=== PATIENT | female | born 1975 | race Caucasian/White ===

== ENCOUNTER 2016-11-05 06:40 | Emergency (ER) | payer BC ==
[~2016-11-05] VITALS: Ht 157.5 cm; Wt 108.9 kg
--- NOTE | 2016-11-05 07:04 | Emergency Room Report ---
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 N Clinical Suspician of Infection? Y Mental Status: 1 - Regular (Normal Baseline) Sepsis Risk:Low Sepsis Risk Have you (or family members/close friends) recently traveled outside the [place]? N If Yes, where/when: Have you had exposure to infectious disease within the past month? N TB? Other? Specify: Source patient, RN notes reviewed, family, old records Exam Limitations no limitations Comment acute onset of rt flank pain this am assoc with nausea Cardiac Chest Pain Chest pain indicative of cardiac No Timing/Duration this morning Severity moderate ALLERGIES Coded Allergies: morphine (Intermediate, HALLUCTION 03/01/16) Home Medications Active Scripts Cyclobenzaprine Hcl (Flexeril) 10 MG PO TID #21 TAB Prov: 12/24/15 SULFAMETHOXAZOLE W/TRIMETHOPRI (Bactrim Ds Tab) 1 TABLET PO BID #20 TAB Prov: 03/03/16 Reported Medications HYDROCHLOROTHIAZIDE (Hydrochlorothiazide) 25 MG PO DAILY #30 Diclofenac Sodium 75 MG PO DAILY #30 VENLAFAXINE HCL (Venlafaxine HCl ER) 37.5 MG PO DAILY #30 No Home Medications (NO HOME MEDICATIONS) 1 EACH XX ONCE (Ping PATEL,Tono Younger) History Medical History General CAD? No Angina: No [place]: No Hypertension? No Hyperlipidemia? No CHF? No DVT? No PE? No COPD? No Asthma? No Anemia? No GERD? No Gastric ulcers? No GI Bleed? No Hernia? No Thyroid Problems? No Hypothyroidism? No CVA? No Seizures? No Diabetes? No Renal Insuffiency? No End Stage Renal Disease? No UTI? No Stones? Yes BPH? No GB Disease: No Nephritic Syndrome? No Asplenia? No Hepatitis? No Sickle Cell Disease? No Arthritis? Yes Migraines? No Cataracts? No Glaucoma? No MRSA? No HIV? No TB? No Anxiety? No Depression? Yes Cancer? No More? 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 Respiratory denies cough, denies shortness of breath, denies wheezing Cardiovascular denies chest pain, denies palpitations, denies syncope Gastrointestinal see HPI, abdominal pain, nausea, vomiting, denies other Genitourinary denies: dysuria, frequency, hesitancy, hematuria. Musculoskeletal denies back pain, denies joint pain, denies joint swelling, denies neck pain Skin denies rash Psychiatric/Neurological denies headache, denies seizure (Tono Feng MD) Physical Exam Vital Signs Vital Signs Date Time Temp Pulse Resp B/P Pulse O2 O2 Flow FiO2 Ox Delivery Rate 11/05 0946 70 16 119/85 97 11/05 0924 16 11/05 0913 58 18 140/80 97 11/05 0744 74 18 121/73 97 11/05 0713 14 11/05 0709 14 11/05 0645 97.9 72 14 153/93 97 - WBC >12,000 or <4,000 or 10% bands? 2 or more SIRS Criteria Met? B/P:153/93 MAP:113 Creatinine >2.0? UA output<0.5ml/kg/hr for 2 hrs? Platelet count >100,000? Lactate >2.0mmol/1? INR >1.2 or PTT > than 60 sec? Evidence of Organ Dysfunction? Provider documented clinical suspician of infection? Y Sepsis Criteria Count: 1 Sepsis Risk: Low Sepsis Risk General Appearance no apparent distress Eye Exam - bilateral eye PERRL, bilateral eye EOMI Ear, Nose, Throat normal ENT inspection Neck supple Respiratory Status No: respiratory distress. Lung Sounds bilateral: lungs clear. Cardiovascular regular rate/rhythm, no murmur Peripheral Pulses Pulses normal Yes Gastrointestinal soft, no organomegaly, no pulsatile mass, no guarding, no rebound, tenderness Back no CVA tenderness Extremities normal inspection Strength 4 Upper Ext (L), 4 Upper Ext (R), 4 Lower Ext (L), 4 Lower Ext (R) Neurologic alert, venipuncturist II-XII nml as tested, no motor/sensory deficits Reflexes Reflexes normal No Mental status normal mood/affect Skin no rash cons.w/shingles (Ping PATEL,Tono Younger) Medical Decision Making LABS/Meds/Orders Pt receiving controlled substance in ED? No Results/Orders Laboratory Tests 11/05/16 0835: Urine Color YELLOW, Urine Appearance CLOUDY, Urine pH 5.0, Ur Specific [place] > = 1.030, Urine Protein TRACE H, Urine Ketones NEGATIVE, Urine Blood 3+ H, Urine Nitrate NEGATIVE, Urine Bilirubin NEGATIVE, Urine Urobilinogen 0.2, Ur Leukocyte Esterase TRACE H, Urine RBC OCC, Urine WBC OCC, Urine Bacteria 4+, Urine Glucose TRACE H 11/05/16 0705: Sodium 138, Potassium 3.9, Chloride 104, Carbon Dioxide 23, BUN 9, Creatinine 1.0, Estimated Creat Clear 125, Estimated GFR (MDRD) 61, Glucose 189 H, Calcium 8.8, Total Bilirubin 0.5, AST 14 L, ALT 28, Alkaline Phosphatase 76, Total Protein 7.7, Albumin 3.9, Globulin 3.8 H, Albumin/Globulin Ratio 1.0 L, Amylase 27, Lipase 171, WBC 9.6, RBC 5.01, Hgb 14.8, Hct 41.7, MCV 83.2, RDW 13.9, Plt Count 324, MPV 7.7, Gran % 79.3, Gran # 7.6, Lymphocytes % 14.6, Monocytes % 3.2, Eosinophils % 2.3, Basophils % 0.6, Lymphocytes # 1.4, Monocytes # 0.3, Eosinophils # 0.2, Basophils # 0.1, PUBS MCHC 35.6 H, MCH 29.6 Current Medication Orders Sig/Samreen Start time Last Medication Dose Route Stop Time Status Admin Ceftriaxone Sodium 0 .STK-MED ONE 11/05 940 DC IV Sodium Chloride 50 ML .STK-MED ONE 11/05 940 DC IV Ceftriaxone Sodium 1 GM ONCE ONE 11/05 929 DC 11/05 Sodium Chloride 50 ML IV 11/05 Ondansetron HCl 0 .STK-MED ONE 11/05 917 DC .ROUTE Hydromorphone HCl 0 .STK-MED ONE 11/05 916 DCr .ROUTE Hydromorphone HCl 1 MG ONCE ONE 11/05 0815 DCr 11/05 IV 11/05 0916 0924 Ondansetron HCl 4 MG ONCE ONE 11/05 914 DC 11/05 IV 11/05 0916 0923 Hydromorphone HCl 1 MG ONCE ONE 11/05 0715 DCr 11/05 IV 11/05 0716 0713 Ketorolac 30 MG ONCE ONE 11/05 0715 DC 11/05 Tromethamine IV 11/05 0716 0709 Hydromorphone HCl 0 .STK-MED ONE 11/05 0710 DCr .ROUTE Ketorolac 0 .STK-MED ONE 11/05 0707 DC Tromethamine .ROUTE Ondansetron HCl 0 .STK-MED ONE 11/05 07 DC .ROUTE Sodium Chloride 1,000 ML .STK-MED ONE 11/05 07 DC IV Ondansetron HCl 4 MG ONCE ONE 11/05 07 DC 11/05 IV 11/05 0701 0706 Sodium Chloride 1,000 ML .Q1H1M 11/05 07 DC 11/05 IV 11/05 0800 0706 Sodium Chloride 10 ML PRN PRN 11/05 07 AC IV 11/06 0700 Orders Procedure Date/time Status DIET-NOTHING BY MOUTH 11/05 B Active CULTURE, URINE 11/[address] ABD/PELVIS REQ 11/05 0659 Complete IV SALINE LOCK 11/05 0659 Active URINALYSIS/COMPLETE 11/05 0659 Complete LIPASE 11/05 0659 Complete CBC WITH AUTO DIFF 11/05 0659 Complete CHEM 12 PROFILE 11/05 0659 Complete AMYLASE 11/05 0659 Complete XRAY/CT/US XRAY/CT/US CT abdomen, pelvis CT interpretation by discussed w/radiologist Time results known: 0814 CT Results abnormal (see report) (Ping PATEL,Tono Younger) LABS/Meds/Orders Pt receiving controlled substance in ED? Yes [place] was queried for this patient? Yes Reference #: [id number] Risks/benefits of using a controlled substance for treatment were not discussed w/pt XRAY/CT/US XRAY/CT/US CT abdomen, pelvis CT interpretation by discussed w/radiologist Time results known: 0957 CT Results 4 cm cyst on right ovary, Mild Right Hydronephrosis with 2 mm stone at right UVJ (Yaz Hurt MD) Departure Departure Time of Disposition 0814 ED Critical Care Critical Care No (Tono Feng MD) Departure Time of Disposition 0958 Disposition DC Home or Self Care(routine) Clinical Impression Primary Impression: Flank pain, acute Secondary Impressions: Ovarian cyst Qualifiers: Laterality: right Qualified Code: N83.201 - Unspecified ovarian cyst, right side Right ureteral stone Condition STABLE Referrals Chino Sotomayor MD (Family) Patient Instructions Acute Cystitis, DI for Acute Cystitis, DI for Kidney Stones , DI for Ovarian Cyst, Kidney Stones -- Adult, Ovarian Cyst Additional Instructions see pcp and mold maintenance technician for follow up to recheck urine and ovarian cysts and take meds as directed. Strain all urine and if stone is caught, take to PCP to get it sent for analysis Discharge Counseling Counseled pt/family regarding diagnosis, test results, medications/RX, home care, follow up needs Prescriptions Current Visit Scripts OXYCODONE HCL/ACETAMINOPHEN (Percocet 5-325 MG Tablet) 1 TAB PO Q4H P #20 TAB Ciprofloxacin HCl (Cipro 500MG TAB) 500 MG PO BID #14 TAB Phenazopyridine HCl (Pyridium) 100 MG PO TID #21 TAB ED Critical Care Critical Care No If Critical Care minutes are documented, the time involved in the performance of seperately reportable procedures was not counted toward critical care time documented. I directly delivered medical care to this critically ill and/or injured patient. Timely evaluation and treatment was necessary to address the significant organ system(s) dysfunction present in this patient. (Yaz Hurt MD) at 0816 at 1004
[2016-11-05 07:14] LABS: HEMOGLOBIN 14.8 g/dL (12.2-16.2); LYMPH # 1.4 K/mm3 (0.7-4.5); LYMPH % 14.6 % (10-50.0)
[2016-11-05 08:42] LABS: URINE BLOOD 3+ (NEG)
[2016-11-05 08:48] LABS: URINE BILIRUBIN - DIPSTICK NEGATIVE (NEG)
--- NOTE | 2016-11-05 09:30 | RADIOLOGY REPORT PS360 ---
US PELVIS-TRANSVAGINAL ONLY HISTORY: Right-sided pelvic pain, abnormal CT scan rt pelvic pain ORDERING PHYSICIAN: Yaz Hurt MD PATIENT AGE: 41 years COMPARISON: None FINDINGS: The uterus is 9 x 5 x 6 cm with a combined endometrial thickness of 9 mm. Nabothian cysts are present. Small amount fluid is present within the endometrium. The uterus is otherwise unremarkable. Right ovary is 5 x 5 cm containing a 4 x 3 cm cyst. No internal septations of the cyst. No perceptible wall. Left ovary is 4 x 3 cm and contains a 2 cm cyst. Ovarian blood flow is noted bilaterally. No cul-de-sac fluid evident. IMPRESSION: 1. 4 cm benign-appearing right ovarian cyst and 2 cm benign-appearing left ovarian cyst. Consider follow-up to confirm resolution. 2. Endometrium upper limits of normal with minimal amount of fluid within the endometrium
--- NOTE | 2016-11-05 09:42 | RADIOLOGY REPORT PS360 ---
CT ABD PELVIS W/O CONTRAST CLINICAL INDICATION: Right-sided abdominal pain radiating into the lower abdomen ABDOMEN PAIN ORDERING PHYSICIAN: Yaz Hurt MD PATIENT AGE: 41 years COMPARISON: 03/03/2016 TECHNIQUE: Axial images obtained with sagittal and coronal reformats. PROCEDURE: Oral Contrast: None IV Contrast: None . FINDINGS: No acute finding the lower chest. Prior cholecystectomy without biliary dilatation. The liver, spleen, adrenal glands, and pancreas are unremarkable. There is cortical scarring of the left kidney with an area of nephrocalcinosis involving the left kidney posteriorly with an associated 1.5 cm cyst. There is mild right hydronephrosis and hydroureter. There is a 2 mm calcific density in the right lower pelvic region which may be related to distal ureteral calculus. Artifact is present in this region from right hip replacement. No calculi are evident within the urinary bladder. No evidence of appendicitis. The appendix is retrocecal. No evidence of diverticulitis or intestinal obstruction. There is diverticulosis of the sigmoid colon. There is a 4 cm right adnexal cyst. Degenerative disc disease L5-S1. Small umbilical hernia containing fat. IMPRESSION: 1. 2 mm right ureterovesical junction stone with mild right hydroureteronephrosis. 2. 4 cm cystic lesion in the right adnexa consistent with an ovarian cyst. 3. Cortical scarring of the left kidney
[2016-11-05 10:48] VITALS: BP 124/82
== END 2016-11-05 11:08 | disposition home or self-care (01) ==
LOC: ER 06:40
PROVIDERS: Emergency Medicine
DX: N83.201 Unspecified ovarian cyst, right side (principal); N20.1 Calculus of ureter; F17.210 Nicotine dependence, cigarettes, uncomplicated

== ENCOUNTER 2016-11-20 17:19 | Emergency (ER) | payer OTHER ==
[~2016-11-20] VITALS: Ht 157.5 cm; Wt 108.9 kg
--- NOTE | 2016-11-20 17:53 | Emergency Room Report ---
History of Present Illness Time Seen by [id number] Presenting Problem in Triage Pt arrived:Walked Presenting Problem:PT C/O PRESSURE IN HER HEAD THAT HAS BEEN ONGOING FOR 2 WEEKS. 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 N Clinical Suspician of Infection? N Mental Status: 1 - Regular (Normal Baseline) Sepsis Risk:Low Sepsis Risk Have you (or family members/close friends) recently traveled outside the [place]? N If Yes, where/when: Have you had exposure to infectious disease within the past month? N TB? Other? Specify: Patient complains of right-sided headache throbbing moderate to severe at times she states currently to 10 out of 10-2 weeks ago and is Progressively worse she states the light hurts her eyes she has been seen by her primary doctor couple times for it. Was placed on some antibiotics for possible sinusitis. He denies any fevers or chills C states she has a little bit of pain at the base of her head but just on the RIGHT side of her neck she denies any generalized neck stiffness. Her headache is on the RIGHT side of the head throbbing with photophobia and she states sometimes she has blurry vision in her right eye only that is like looking through irregular type glass. ALLERGIES Coded Allergies: morphine (Intermediate, HALLUCTION 03/01/16) Home Medications Reported Medications HYDROCHLOROTHIAZIDE (Hydrochlorothiazide) 25 MG PO DAILY #30 VENLAFAXINE HCL (Venlafaxine HCl ER) 37.5 MG PO DAILY #30 No Home Medications (NO HOME MEDICATIONS) 1 EACH XX ONCE History Medical History General CAD? No Angina: No [place]: No Hypertension? No Hyperlipidemia? No CHF? No DVT? No PE? No COPD? No Asthma? No Anemia? No GERD? No Gastric ulcers? No GI Bleed? No Hernia? No Thyroid Problems? No Hypothyroidism? No CVA? No Seizures? No Diabetes? No Renal Insuffiency? No End Stage Renal Disease? No UTI? No Stones? Yes BPH? No GB Disease: No Nephritic Syndrome? No Asplenia? No Hepatitis? No Sickle Cell Disease? No Arthritis? Yes Migraines? No Cataracts? No Glaucoma? No MRSA? No HIV? No TB? No Anxiety? No Depression? Yes Cancer? No More? 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 Eyes: conjunctiva/corneas clear ENT: Mucous membranes moist. Neck: No jugular venous distention. Cardiac: regular rate and rhythm Lungs: Clear to auscultation bilaterally Abdomen: Nontender, Nondistended, positive bowel sounds, no rebound : No CVA tenderness Extremities: no edema Musculoskeletal: No chest wall tenderness Skin: No rashes or lesions to exposed skin. Neurologic: Alert. Alert and oriented x3 Cranial nerves intact Strength 5 out of 5 Sensation intact to light touch Visual rod intact 4 Right eye Psychiatric: Normal affect (Lisa PATEL, Darrell) General Appearance normal appearance Respiratory Status No: respiratory distress. Cardiovascular normal exam Neurologic alert Medical Decision Making LABS/Meds/Orders Pt receiving controlled substance in ED? No Comment 637pm just got off the phone with radiology either states there is a high density RIGHT posterior fossa area next the transverse venous sinus that was not there previously he thinks that is likely not a bleed but cannot exclude a bleed. The nurse tells me the current blood pressure is 157/96. We have a call out to [facility] she is on the phone with them right now radiology called back, states perhaps venous thrombosis versus bleed, versus 645 on phone with transfer center. awaiting NS/stroke team [phone] Wilfred PATEL accepts patient, desires bp 160-140 range. its now 177 will give labetolol, further pain medicine. Results/Orders Laboratory Tests 11/20/16 1750: Sodium 140, Potassium 3.9, Chloride 104, Carbon Dioxide 29, BUN 12, Creatinine 1.0, Estimated Creat Clear 125, Estimated GFR (MDRD) 61, Glucose 124 H, Calcium 8.6, Total Bilirubin 0.2, AST 17, ALT 39, Alkaline Phosphatase 75, Total Protein 7.2, Albumin 3.5, Globulin 3.7 H, Albumin/Globulin Ratio 0.9 L, WBC 10.9 H, RBC 4.94, Hgb 14.8, Hct 43.8, MCV 88.6, RDW 14.0, Plt Count 301, MPV 7.6, Gran % 70.7, Gran # 7.7, Lymphocytes % 23.2, Monocytes % 4.3, Eosinophils % 1.6, Basophils % 0.3, Lymphocytes # 2.5, Monocytes # 0.5, Eosinophils # 0.2, Basophils # 0.0, PUBS MCHC 33.8, MCH 30.0 Current Medication Orders Sig/Samreen Start time Last Medication Dose Route Stop Time Status Admin Hydromorphone HCl 0.5 MG ONCE ONE 11/20 1900 r IV 11/20 190 Labetalol HCl 0 .STK-MED ONE 11/20 1852 DC IV Labetalol HCl 10 MG ONCE ONE 11/20 1815 DC IV 11/20 1816 Diphenhydramine HCl 25 MG ONCE ONE 11/20 1800 DC 11/20 IV 11/20 1801 1801 Metoclopramide HCl 10 MG ONCE ONE 11/20 1800 DC 11/20 IVP 11/20 1801 1802 Sodium Chloride 1,000 ML .Q1H1M 11/20 1800 AC 11/20 IV 11/20 1900 1800 Sodium Chloride 10 ML PRN PRN 11/20 1800 AC IV 11/21 1749 Diphenhydramine HCl 0 .STK-MED ONE 11/20 175 DC .ROUTE Sodium Chloride 1,000 ML .STK-MED ONE 11/20 175 DC IV Metoclopramide HCl 0 .STK-MED ONE 11/20 175 DC .ROUTE Sodium Chloride 10 ML PRN PRN 11/20 1730 AC IV 11/21 172 Orders Procedure Date/time Status DIET-NOTHING BY MOUTH 11/[address] HEAD REQ 11/20 1729 Complete IV SALINE LOCK 11/20 1729 Active CBC WITH AUTO DIFF 11/20 1729 Complete CHEM 12 PROFILE 10/[address] HEAD W/O CONTRAST 11/20 UNK Active Departure Departure Time of Disposition 1838 Disposition DC/XFER from ER to [facility] Clinical Impression Primary Impression: Headache Qualifiers: Headache type: unspecified Condition STABLE Referrals Chino Sotomayor MD (Family) ED Critical Care Critical Care Yes Time spent 30-74 min Vital system(s) involved: Central Nervous System I was present at bedside for Coordinating pt's care, Interpreting EKGs/Strips , During my initial exam, Reviewing lab results, Discussing pt condition, For re -examinations If Critical Care minutes are documented, the time involved in the performance of seperately reportable procedures was not counted toward critical care time documented. I directly delivered medical care to this critically ill and/or injured patient. Timely evaluation and treatment was necessary to address the significant organ system(s) dysfunction present in this patient. at 1856
[2016-11-20 17:56] LABS: HEMOGLOBIN 14.8 g/dL (12.2-16.2); LYMPH # 2.5 K/mm3 (0.7-4.5); LYMPH % 23.2 % (10-50.0)
--- NOTE | 2016-11-20 19:10 | RADIOLOGY REPORT PS360 ---
CT HEAD WITHOUT CONTRAST CT BONE WINDOWS included ORDERING PHYSICIAN : Darrell Gonzalez MD PATIENT AGE: 41 years GENDER: Female PROCEDURE: Routine axial images headwithout contrast. Brain & bone windows HISTORY: LATERAL RT HEADACHE X 2 WEEKS PRESSURE Right-sided pain and pressure2 weeks COMPARISON: Previous CT head 07/26/2011 FINDINGS: Inhomogeneous hyperdense material is seen overlying the tentorium on right along the course of the prominent distended right transverse dural venous sinus. This is unchanged as prior CT study. This appearance most likely does reflect reflecting transverse sinus dural venous thrombosis with inhomogeneous hyperdense blood evident here along course of right transverse sinus. Question, suspect possible extension into the straight sinus and possible associated developing superior sagittal sinus thrombosis noting slightly generous hyperdense appearance in these regions as well well on this noncontrast study. This is not helical study but attempted 3-D reconstructions support transverse sinus thrombosis. Rather than other form of hemorrhage overlying posterior fossa such as subdural collection . A CT or MRI venogram would be recommended to further evaluate and confirm . The lateral and third ventricles appear normal in size. Remainder supratentorial brain unremarkable. Fourth ventricle remains normal position and size. Interpeduncular cistern appears clear and normal does suprasellar cistern. ... The skull is intact. Orbits unremarkable The visualized portions of the paranasal sinuses are clear. Mastoid air cells, middle ear & IACs are unremarkable. IMPRESSION: Inhomogeneous hyperdense material along the course of the distended right transverse dural venous sinus.. 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 This is significant change since previous noncontrast CT head 2011 . MRV or CTV brain recommended
[2016-11-20 19:38] VITALS: BP 160/99
--- OUTSIDE RECORDS SUMMARY | 2016-11-28 16:06 | External Medical Summary Rpt | CCD ---
Author Author [employer] Organization [employer] Address Unknown Phone Unavailable Purpose Continuity of Care Document - through 2016
--- OUTSIDE RECORDS SUMMARY | 2016-11-28 16:06 | External Medical Summary Rpt | CCD ---
Author Author , AV JOSHI Address Unknown Phone [email or web address] Purpose Continuity of Care Document - 11-05-2016 through 2016 Results Labs Lab Lab Date Result Refere Interp Status Commen Order Detail nces retati t Range on UFH PPP In Service Education Teacher-aCnc (11-23-2016 03:09) UFH PPP 0.48 complet 017 IU/mL ed In Service Education Teacher-aC 03:09 nc Sodium SerPl-sCnc (11-22-2016 10:04) Sodium 139 136-145 complet SerPl-s 017 mmol/L ed Cnc 10:04 UFH PPP In Service Education Teacher-aCnc (11-22-2016 10:04) UFH PPP 0.66 complet 017 IU/mL ed In Service Education Teacher-aC 10:04 nc TSH SerPl DL<=0.005 mIU/L-aCnc (11-22-2016 04:11) TSH 0.61 0.4-4.2 complet SerPl 017 uIU/mL ed DL<=0.0 04:11 05 mIU/L-a Cnc Phosphate SerPl-mCnc (11-22-2016 04:11) Phospha 2.4 2.5-4.5 complet te 017 mg/dL ed SerPl-m 04:11 Cnc Magnesium SerPl-mCnc (11-22-2016 04:11) Magnesi 1.9 1.9-2.4 complet um 017 mg/dL ed SerPl-m 04:11 Cnc UFH PPP In Service Education Teacher-aCnc (11-22-2016 04:11) UFH PPP 0.39 complet 017 IU/mL ed In Service Education Teacher-aC 04:11 nc UFH PPP In Service Education Teacher-aCnc (11-21-2016 22:35) UFH PPP 0.80 complet 017 IU/mL ed In Service Education Teacher-aC 22:35 nc Sodium SerPl-sCnc (11-21-2016 22:35) Sodium 139 136-145 complet SerPl-s 017 mmol/L ed Cnc 22:35 Sodium SerPl-sCnc (11-21-2016 16:08) Sodium 137 136-145 complet SerPl-s 017 mmol/L ed Cnc 16:08 UFH PPP In Service Education Teacher-aCnc (11-21-2016 16:08) UFH PPP 0.78 complet 017 IU/mL ed In Service Education Teacher-aC 16:08 nc MDRO Wnd (11-21-2016 11:30) Bacteri [id number] complet a XXX 017 00 not ed Anaerob 11:30 isolate e+Aerob d e Cult (qualif ier value) SCT NMDR NO MULTI DRUG RESISTA NT ORGANIS MS ISOLATE D L CC XXX NOTAP complet VC-aCnc 017 NOT ed 11:30 APPLICA BLE L UFH PPP In Service Education Teacher-aCnc (11-21-2016 09:53) UF PPP 0.77 complet 017 IU/mL ed In Service Education Teacher-aC 09:53 nc TSH SerPl DL<=0.005 mIU/L-aCnc (11-21-2016 09:39) TSH 0.99 0.4-4.2 complet SerPl 017 uIU/mL ed DL<=0.0 09:39 05 mIU/L-a Cnc Sodium SerPl-sCnc (11-21-2016 09:39) Sodium 138 136-145 complet SerPl-s 017 mmol/L ed Cnc 09:39 Ca-I SerPl ISE-sCnc (11-21-2016 05:52) Ca-I 4.3 4.6-5.1 complet SerPl 017 mg/dL ed ISE-sCn 05:52 c UUN Ur-mCnc (11-21-2016 05:52) UUN 724 complet Ur-mCnc 017 mg/dL ed 05:52 Sodium Ur-sCnc (11-21-2016 05:52) Sodium 115 complet Ur-sCnc 017 mmol/L ed 05:52 Potassium Ur-sCnc (10-05-2017 05:52) Potassi 34 complet um 017 mmol/L ed Ur-sCnc 05:52 Creat Ur-mCnc (11-21-2016 05:52) Creat 108 complet Ur-mCnc 017 mg/dL ed 05:52 Chloride Ur-sCnc (11-21-2016 05:52) Chlorid 98 complet e 017 mmol/L ed Ur-sCnc 05:52 Magnesium SerPl-mCnc (11-21-2016 04:42) Magnesi 2.0 1.9-2.4 complet um 017 mg/dL ed SerPl-m 04:42 Cnc Hgb A1c MFr Bld (11-21-2016 04:42) Hgb A1c DUP 4.7-6.0 complet MFr 017 DUPLICA ed Bld 04:42 TE ORDER,C REDITED L % Hgb A1c MFr Bld (11-21-2016 04:42) Hgb A1c 5.5 % 4.7-6.0 complet MFr 017 ed Bld 04:42 Phosphate SerPl-mCnc (11-21-2016 04:42) Phospha 2.3 2.5-4.5 complet te 017 mg/dL ed SerPl-m 04:42 Cnc CK SerPl-cCnc (11-21-2016 04:42) CK 34 U/L 37-168 complet SerPl-c 017 ed Cnc 04:42 UFH PPP In Service Education Teacher-aCnc (11-21-2016 04:42) UFH PPP LE11 complet 017 <0.11 L ed In Service Education Teacher-aC 04:42 IU/mL nc
--- OUTSIDE RECORDS SUMMARY | 2016-11-28 16:06 | External Medical Summary Rpt | CCD ---
Demographics Preferred Language Chinese Marital Status Unknown Advent Affiliation Unknown Race Unknown Ethnic Group Unknown Author Author , MADELYN JOSHI Address Unknown Phone Immunization No patient found.
--- OUTSIDE RECORDS SUMMARY | 2016-11-28 16:06 | External Medical Summary Rpt | CCD ---
Author Author , AV JOSHI Address Unknown Phone [email or web address] Purpose Continuity of Care Document - 11-05-2016 through 2016 Results Labs Lab Lab Date Result Refere Interp Status Commen Order Detail nces retati t Range on UFH PPP [facility]-a[facility] (11-23-2016 03:09) UFH PPP 0.48 complet 017 IU/mL ed [facility]-aC 03:09 nc Sodium SerPl-sCnc (11-22-2016 10:04) Sodium 139 136-145 complet SerPl-s 017 mmol/L ed Cnc 10:04 UFH PPP [facility]-a[facility] (11-22-2016 10:04) UFH PPP 0.66 complet 017 IU/mL ed [facility]-aC 10:04 nc TSH SerPl DL<=0.005 mIU/L-aCnc (11-22-2016 04:11) TSH 0.61 0.4-4.2 complet SerPl 017 uIU/mL ed DL<=0.0 04:11 05 mIU/L-a Cnc Phosphate SerPl-mCnc (11-22-2016 04:11) Phospha 2.4 2.5-4.5 complet te 017 mg/dL ed SerPl-m 04:11 Cnc Magnesium SerPl-mCnc (11-22-2016 04:11) Magnesi 1.9 1.9-2.4 complet um 017 mg/dL ed SerPl-m 04:11 Cnc UFH PPP [facility]-aCnc (11-22-2016 04:11) UFH PPP 0.39 complet 017 IU/mL ed [facility]-aC 04:11 nc UFH PPP [facility]-aCnc (11-21-2016 22:35) UFH PPP 0.80 complet 017 IU/mL ed [facility]-aC 22:35 nc Sodium SerPl-sCnc (11-21-2016 22:35) Sodium 139 136-145 complet SerPl-s 017 mmol/L ed Cnc 22:35 Sodium SerPl-sCnc (11-21-2016 16:08) Sodium 137 136-145 complet SerPl-s 017 mmol/L ed Cnc 16:08 UFH PPP [facility]-aCnc (11-21-2016 16:08) UFH PPP 0.78 complet 017 IU/mL ed [facility]-aC 16:08 nc MDRO Wnd (11-21-2016 11:30) Bacteri [id number] complet a XXX 017 00 not ed Anaerob 11:30 isolate e+Aerob d e Cult (qualif ier value) SCT NMDR NO MULTI DRUG RESISTA NT ORGANIS MS ISOLATE D L CC XXX NOTAP complet VC-aCnc 017 NOT ed 11:30 APPLICA BLE L UFH PPP [facility]-a[facility] (11-21-2016 09:53) UF PPP 0.77 complet 017 IU/mL ed [facility]-aC 09:53 nc TSH SerPl DL<=0.005 mIU/L-aCnc (11-21-2016 [...] SerPl-c 017 ed Cnc 04:42 UFH PPP [facility]-aCnc (11-21-2016 04:42) UFH PPP LE11 complet 017 <0.11 L ed [facility]-aC 04:42 IU/mL nc
--- OUTSIDE RECORDS SUMMARY | 2016-11-28 16:06 | External Medical Summary Rpt | CCD ---
Demographics Preferred Language German Marital Status Unknown Zoroastrianism Affiliation Unknown Race Unknown Ethnic Group Unknown Author Author , MADELYN JOSHI Address Unknown Phone Immunization No patient found.
--- OUTSIDE RECORDS SUMMARY | 2016-11-28 16:07 | External Medical Summary Rpt ---
Author Author MADELYN Sebastian, [employer] Organization [employer] Address Unknown Phone Unavailable Results Comprehensive metabolic 2000 panel in Serum or Plasma Observa Value Referen Units Interpr Notes Date tion ce etation Range Albumin/G 1.1 - 1.8 No Low No Oct 4 lobulin informati informati 2017 5:50 [Mass on in on in PM ratio] in source source Serum or data data Plasma Albumin 3.4 - 5.0 gm/dL Normal No Oct 4 [Mass/vol informati 2017 5:50 ume] in on in PM Serum or source Plasma data Alkaline 46 - 116 U/L Normal No Oct 4 phosphata informati 2017 5:50 se on in PM [Enzymati source c data activity/ volume] in Serum or Plasma Bilirubin 0.2 - 1.0 mg/dL Normal No Oct 4 .total informati 2017 5:50 [Mass/vol on in PM ume] in source Serum or data Plasma Urea 7 - 18 mg/dL Normal No Oct 4 nitrogen informati 2017 5:50 [Mass/vol on in PM ume] in source Serum or data Plasma Calcium 8.5 - mg/dL Normal No Oct 4 [Mass/vol 10.1 informati 2017 5:50 ume] in on in PM Serum or source Plasma data Chloride 98 - 107 mmoL/L Normal No Oct 4 [Moles/vo informati 2017 5:50 lume] in on in PM Serum or source Plasma data Carbon 21.0 - mmoL/L Normal No Oct 4 dioxide, 32.0 informati 2017 5:50 total on in PM [Moles/vo source lume] in data Serum or Plasma Creatinin 0.55 - mg/dL Normal No Oct 4 e 1.02 informati 2017 5:50 [Mass/vol on in PM ume] in source Serum or data Plasma Creatinin 50 - 200 ML/MIN Normal No Oct 4 e renal informati 2017 5:50 clearance on in PM source predicted data by Cockcroft -Gault formula Estimated 59- ML/MIN No REFERENCE Oct 4 informati RANGE: 2016 5:50 glomerula on in >60 PM r source ML/MIN/1. filtratio data 73 SQUARE n rate METERSIf (GF this patient is -A merican, then multiply theresult by 1.210. Globulin 1.3 - 3.2 gm/dL High No Nov 20 [Mass/vol informati 2016 5:50 ume] in on in PM Serum source data Glucose 74 - 106 mg/dL High No Nov 20 [Mass/vol informati 2016 5:50 ume] in on in PM Serum or source Plasma data Potassium 3.5 - 5.1 mmoL/L Normal No Nov 202016 5:50 [Moles/vo on in PM lume] in source Serum or data Plasma Sodium 136 - 145 mmoL/L Normal No Nov 20 [Moles/vo 2016 5:50 lume] in on in PM Serum or source Plasma data Aspartate 15 - 37 U/L Normal No Nov 202016 5:50 aminotran on in PM sferase source [Enzymati data c activity/ volume] in Serum or Plasma Alanine 12 - 78 U/L Normal No Nov 20 aminotran 2016 5:50 sferase on in PM [Enzymati source c data activity/ volume] in Serum or Plasma Protein 6.4 - 8.2 gm/dL Normal No Nov 20 [Mass/vol informati 2016 5:50 ume] in on in PM Serum or source Plasma data CBC W Auto Differential panel in Blood Observa Value Referen Units Interpr Notes Date tion ce etation Range Basophils 0 - 0.2 K/MM3 Normal No Nov 202016 5:50 [#/volume on in PM ] in source Blood by data Automated count Basophils 0.1 - 2.0 % Normal No Nov 20 inform2016 5:50 leukocyte on in PM s in source Blood by data Automated count Eosinophi 0.0 - 0.4 K/mm3 Normal No Nov 20 ls ati 2016 5:50 [#/volume on in PM ] in source Blood by data Automated count Eosinophi 0.1 - % Normal No Nov 20 ls/100 12.0 informati 2016 5:50 leukocyte on in PM s in source Blood by data Automated count Granulocy 1.8 - 7.8 K/mm3 Normal No Nov 20 robyn 2016 5:50 [#/volume on in PM ] in source Blood by data Automated count Granulocy 37.0 - % Normal No Nov 20 robyn/100 80.0 informati 2016 5:50 leukocyte on in PM s in source Blood by data Automated count Hematocri 37.0 - % Normal No Nov 20 t [Volume 47.0 2016 5:50 on in PM Fraction] source of Blood data Hemoglobi 12.2 - g/dL Normal No Nov 20 n 16.2 informati 2016 5:50 [Mass/vol on in PM ume] in source Blood data Lymphocyt 0.7 - 4.5 K/mm3 Normal No Nov 20 es inform2016 5:50 [#/volume on in PM ] in source Unspecifi data ed specimen by Automated count Lymphocyt 10 - 50.0 % Normal No Nov 20 es 2016 5:50 [#/volume on in PM ] in source Unspecifi data ed specimen by Automated count Erythrocy 27 - 31.2 pg Normal No Nov 20 te mean 2016 5:50 corpuscul on in PM ar source hemoglobi data n [Entitic mass] Erythrocy 31.8 - g/dl Normal No Nov 20 te mean 35.4 inform2016 5:50 corpuscul on in PM ar source hemoglobi data n concentra tion [Mass/vol ume] by Automated count Erythrocy 82.2 - fl Normal No Nov 20 te mean 97.8 inform2016 5:50 corpuscul on in PM ar volume source [Entitic data volume] by Automated count Monocytes 0.1 - 1.0 K/mm3 Normal No Nov 202016 5:50 [#/volume on in PM ] in source Blood by data Automated count Monocytes 1.7 - 9.3 % Normal No Nov 20 / inform2016 5:50 leukocyte on in PM s in source Blood by data Automated count Platelet 7.4 - fl Normal No Nov 20 mean 10.4 informati 2016 5:50 volume on in PM [Entitic source volume] data in Blood by Automated count Platelets 142 - 424 K/mm3 Normal No Nov 202016 5:50 [#/volume on in PM ] in source Blood data Erythrocy 4.2 - 5.4 M/mm3 Normal No Nov 20 robyn informati 2016 5:50 [#/volume on in PM ] in source Amniotic data fluid Erythrocy 11.5 - % Normal No Nov 20 te 17.5 informati 2017 5:50 distribut on in PM ion width source [Entitic data volume] by Automated count Leukocyte 4.8 - K/MM3 High No Nov 4 s 10.8 informati 2017 5:50 [#/volume on in PM ] in source Blood data Amylase [Enzymatic activity/volume] in Serum or Plasma Observa Value Referen Units Interpr Notes Date tion ce etation Range Amylase 25 - 115 U/L Normal No Sep 19 [Enzymati informati 2017 7:05 c on in AM activity/ source volume] data in Serum or Plasma Comprehensive metabolic 2000 panel in Serum or Plasma Observa Value Referen Units Interpr Notes Date tion ce etation Range Albumin/G 1.1 - 1.8 No Low No Sep 19 lobulin informati informati 2017 7:05 [Mass on in on in AM ratio] in source source Serum or data data Plasma Albumin 3.4 - 5.0 gm/dL Normal No Sep 19 [Mass/vol informati 2017 7:05 ume] in on in AM Serum or source Plasma data Alkaline 46 - 116 U/L Normal No Sep 19 phosphata informati 2017 7:05 se on in AM [Enzymati source c data activity/ volume] in Serum or Plasma Bilirubin 0.2 - 1.0 mg/dL Normal No Sep 19 .total informati 2017 7:05 [Mass/vol on in AM ume] in source Serum or data Plasma Urea 7 - 18 mg/dL Normal No Sep 19 nitrogen informati 2017 7:05 [Mass/vol on in AM ume] in source Serum or data Plasma Calcium 8.5 - mg/dL Normal No Sep 19 [Mass/vol 10.1 informati 2017 7:05 ume] in on in AM Serum or source Plasma data Chloride 98 - 107 mmoL/L Normal No Sep 19 [Moles/vo informati 2017 7:05 lume] in on in AM Serum or source Plasma data Carbon 21.0 - mmoL/L Normal No Sep 19 dioxide, 32.0 informati 2017 7:05 total on in AM [Moles/vo source lume] in data Serum or Plasma Creatinin 0.55 - mg/dL Normal No Sep 19 e 1.02 informati 2017 7:05 [Mass/vol on in AM ume] in source Serum or data Plasma Creatinin 50 - 200 ML/MIN Normal No Sep 19 e renal informati 2016 7:05 clearance on in AM source predicted data by Cockcroft -Gault formula Estimated 59- ML/MIN No REFERENCE Sep 19 informati RANGE: 2017 7:05 glomerula on in >60 AM r source ML/MIN/1. filtratio data 73 SQUARE n rate METERSIf (GF this patient is -A merican, then multiply theresult by 1.210. Globulin 1.3 - 3.2 gm/dL High No Sep 19 [Mass/vol informati 2016 7:05 ume] in on in AM Serum source data Glucose 74 - 106 mg/dL High No Sep 19 [Mass/vol informati 2016 7:05 ume] in on in AM Serum or source Plasma data Potassium 3.5 - 5.1 mmoL/L Normal No Sep inform2016 7:05 [Moles/vo on in AM lume] in source Serum or data Plasma Sodium 136 - 145 mmoL/L Normal No Sep [Moles/vo informati 2016 7:05 lume] in on in AM Serum or source Plasma data Aspartate 15 - 37 U/L Low No Sep informati 2016 7:05 aminotran on in AM sferase source [Enzymati data c activity/ volume] in Serum or Plasma Alanine 12 - 78 U/L Normal No Sep 19 aminotran informati 2016 7:05 sferase on in AM [Enzymati source c data activity/ volume] in Serum or Plasma Protein 6.4 - 8.2 gm/dL Normal No Sep 19 [Mass/vol informati 2016 7:05 ume] in on in AM Serum or source Plasma data Lipase [Enzymatic activity/volume] in Serum or Plasma Observa Value Referen Units Interpr Notes Date tion ce etation Range Lipase 73 - 393 U/L Normal No Sep 19 [Enzymati informati 2016 7:05 c on in AM activity/ source volume] data in Serum or Plasma CBC W Auto Differential panel in Blood Observa Value Referen Units Interpr Notes Date tion ce etation Range Basophils 0 - 0.2 K/MM3 Normal No Sep 19 inform2016 7:05 [#/volume on in AM ] in source Blood by data Automated count Basophils 0.1 - 2.0 % Normal No Sep 19 /100 informati 2016 7:05 leukocyte on in AM s in source Blood by data Automated count Eosinophi 0.0 - 0.4 K/mm3 Normal No Sep 19 ls informati 2016 7:05 [#/volume on in AM ] in source Blood by data Automated count Eosinophi 0.1 - % Normal No Sep 19 ls/100 12.0 informati 2017 7:05 leukocyte on in AM s in source Blood by data Automated count Granulocy 1.8 - 7.8 K/mm3 Normal No Sep 19 robyn informati 2016 7:05 [#/volume on in AM ] in source Blood by data Automated count Granulocy 37.0 - % Normal No Sep 19 robyn/100 80.0 informati 2017 7:05 leukocyte on in AM s in source Blood by data Automated count Hematocri 37.0 - % Normal No Sep 19 t [Volume 47.0 informati 2016 7:05 on in AM Fraction] source of Blood data Hemoglobi 12.2 - g/dL Normal No Sep 19 n 16.2 informati 2017 7:05 [Mass/vol on in AM ume] in source Blood data Lymphocyt 0.7 - 4.5 K/mm3 Normal No Sep 19 es informati 2017 7:05 [#/volume on in AM ] in source Unspecifi data ed specimen by Automated count Lymphocyt 10 - 50.0 % Normal No Sep 19 es informati 2017 7:05 [#/volume on in AM ] in source Unspecifi data ed specimen by Automated count Erythrocy 27 - 31.2 pg Normal No Sep 19 te mean informati 2017 7:05 corpuscul on in AM ar source hemoglobi data n [Entitic mass] Erythrocy 31.8 - g/dl High No Sep 19 te mean 35.4 informati 2017 7:05 corpuscul on in AM ar source hemoglobi data n concentra tion [Mass/vol ume] by Automated count Erythrocy 82.2 - fl Normal No Sep 19 te mean 97.8 informati 2017 7:05 corpuscul on in AM ar volume source [Entitic data volume] by Automated count Monocytes 0.1 - 1.0 K/mm3 Normal No Sep 19 informati 2016 7:05 [#/volume on in AM ] in source Blood by data Automated count Monocytes 1.7 - 9.3 % Normal No Sep 19 /100 informati 2016 7:05 leukocyte on in AM s in source Blood by data Automated count Platelet 7.4 - fl Normal No Sep 19 mean 10.4 informati 2017 7:05 volume on in AM [Entitic source volume] data in Blood by Automated count Platelets 142 - 424 K/mm3 Normal No Sep 19 informati 2017 7:05 [#/volume on in AM ] in source Blood data Erythrocy 4.2 - 5.4 M/mm3 Normal No Sep 19 robyn informati 2017 7:05 [#/volume on in AM ] in source Amniotic data fluid Erythrocy 11.5 - % Normal No Oct 19 te 17.5 informati 2016 7:05 distribut on in AM ion width source [Entitic data volume] by Automated count Leukocyte 4.8 - K/MM3 Normal No Sep 19 s 10.8 informati 2017 7:05 [#/volume on in AM ] in source Blood data
== END 2016-11-20 19:39 | disposition short-term general hospital (02) ==
LOC: ER 17:19
PROVIDERS: Emergency Medicine
DX: I82.890 Acute embolism and thrombosis of other specified veins (principal); R03.0 Elevated blood-pressure reading, without diagnosis of hypertension; Z88.6 Allergy status to analgesic agent; Z87.442 Personal history of urinary calculi; F32.9 Major depressive disorder, single episode, unspecified; F17.210 Nicotine dependence, cigarettes, uncomplicated